=== PATIENT | female | born 1990 | race Caucasian/White ===

== ENCOUNTER 2017-11-03 17:06 | Emergency (ER) | payer MEDICAID ==
[~2017-11-03] VITALS: Ht 170.2 cm; Wt 90.7 kg
--- NOTE | 2017-11-03 17:12 | NUR ---
PATIENT AMBULATED TO ER BED 8
[2017-11-03 17:15] VITALS: BP 144/96
--- NOTE | 2017-11-03 17:29 | NUR ---
DR RICHARDSON AT BEDSIDE FOR PT EVALUATION
[2017-11-03] MEDS ORDERED: PANTOPRAZOLE 40 MG TABEC PO ONE (17:30)
[2017-11-03] MEDS ORDERED: ALUMINUM HYD/MAG/SIMETHICONE 30 ML UDC PO ONE (17:30)
[2017-11-03] MEDS ORDERED: KETOROLAC 30 MG/ML VIAL IM ONE (17:30)
[2017-11-03] MEDS ORDERED: LIDOCAINE VISCOUS 2% 20 ML UDC PO ONE (17:30)
[2017-11-03] MEDS ORDERED: ONDANSETRON 4 MG/2 ML VIAL IM ONE (17:30)
--- NOTE | 2017-11-03 17:50 | NUR ---
PT C/O EPIGASTRIC PAIN X 3 DAYS 06/27 BURNING, +N/V DENIES DIARRHEA OR DYSURIA. NO OTHER COMPLAINTS. HX: NONE
[2017-11-03 18:38] VITALS: BP 128/78
--- NOTE | 2017-11-03 18:38 | NUR ---
Patient discharged with v/s stable. Written and verbal after care instructions given and explained. Patient alert, oriented and verbalized understanding of instructions. Ambulatory with steady gait. All questions addressed prior to discharge. ID band removed. Patient advised to follow up with PMD. Rx of OMEPRAZOLE AND MAALOX given. Patient educated on indication of medication including possible reaction and side effects. Opportunity to ask questions provided and answered.
== END 2017-11-03 18:38 | disposition home or self-care (01) ==
LOC: MED 17:06
DX: K29.70 Gastritis, unspecified, without bleeding (principal); Z98.890 Other specified postprocedural states
CPT/HCPCS: 81002; 81025; 96372; 99284; J1885; J2405

== ENCOUNTER 2021-08-09 19:11 | Emergency (ER) | payer MEDICAID, OTHER ==
[~2021-08-09] VITALS: Ht 160 cm; Wt 108.0 kg
[~2021-08-09 19:11] MED LIST: OSC500 PO; PREN-385 PO
[2021-08-09 19:16] VITALS: BP 163/88
--- NOTE | 2021-08-09 20:21 | NUR ---
Dr. Francis examining patient.
[2021-08-09] MEDS ORDERED: CEPH-588 PO (20:23)
[2021-08-09] MEDS ORDERED: IBUP-2213 PO (20:23)
[2021-08-09 20:31] VITALS: BP 142/72
--- NOTE | 2021-08-09 20:31 | NUR ---
Patient discharged with v/s stable. Written and verbal after care instructions given and explained for Cellulitis, Adult. Patient alert, oriented and verbalized understanding of instructions. Ambulatory with steady gait. All questions addressed prior to discharge. ID band removed. Patient advised to follow up with PMD. Rx of Keflex and Ibuprofen given. Patient educated on indication of medication including possible reaction and side effects. Opportunity to ask questions provided and answered.
== END 2021-08-09 20:31 | disposition home or self-care (01) ==
LOC: MED 19:11
DX: L02.412 Cutaneous abscess of left axilla (principal); L03.112 Cellulitis of left axilla; Z79.899 Other long term (current) drug therapy
CPT/HCPCS: 99283

== ENCOUNTER 2023-07-12 20:13 | Emergency (ER) | payer OTHER ==
[~2023-07-12] VITALS: Ht 157.5 cm; Wt 108.9 kg
[~2023-07-12 20:13] MED LIST changes: +CEPH-588 PO; +IBUP-2213 PO
[2023-07-12 20:15] VITALS: BP 137/79; PULSE 90; RESP 16; TEMP 97.8; O2SAT 99
[2023-07-12 22:25] LABS: BASOPHILS % (AUTO) 0.3 % (0.0-2.0); EOSINOPHILS # (AUTO) 0.1 K/uL (0-0.4); EOSINOPHILS % (AUTO) 0.5 % (0.0-4.0); HEMATOCRIT 38.7 % (36-48); HEMOGLOBIN 12.8 g/dL (12.0-16.0); LYMPHOCYTES # (AUTO) 3.5 K/uL (2.5-16.5); LYMPHOCYTES % (AUTO) 25.8 % (20.5-51.1); MEAN CORPUSCULAR HEMOGLOBIN 27 pg (27-31); MEAN CORPUSCULAR HGB CONC 33 g/dL (33-37); MEAN CORPUSCULAR VOLUME 80.7 fL (80-94); MONOCYTES # (AUTO) 0.6 K/uL (0.8-1.0); MONOCYTES % (AUTO) 4.1 % (1.7-9.3); NEUTROPHILS # (AUTO) 9.3 K/uL (1.8-7.7); NEUTROPHILS % (AUTO) 69.3 % (42.2-75.2); PLATELET COUNT (AUTO) 267 K/uL (140-450); RED CELL DISTRIBUTION WIDTH 14.9 % (11.6-13.7); WHITE BLOOD COUNT (AUTO) 13.4 K/uL (4.8-10.8)
[2023-07-12 22:45] LABS: ALBUMIN 3.8 g/dL (3.4-5.0); ANION GAP 12.2 (8-16); CALCIUM 8.9 mg/dL (8.5-10.1); CARBON DIOXIDE 27.4 mmol/L (21-32); CREATININE 0.6 mg/dL (0.6-1.3); POTASSIUM 3.6 mmol/L (3.5-5.1); TOTAL BILIRUBIN 0.3 mg/dL (0.0-1.0)
[2023-07-13 01:18] VITALS: O2SAT 98
[2023-07-13] MEDS ORDERED: ALUMINUM HYD/MAG/SIMETHICONE 30 ML UDC ONE (01:40)
[2023-07-13 01:41] LABS: APPEARANCE,URINE CLEAR (CLEAR); BILIRUBIN,URINE NEGATIVE (NEGATIVE); BLOOD, URINE NEGATIVE (NEGATIVE); COLOR,URINE YELLOW (YELLOW); LEUKOCYTE ESTERASE ,URINE NEGATIVE (NEGATIVE); NITRITE, URINE NEGATIVE (NEGATIVE); PROTEIN,URINE NEGATIVE (NEGATIVE); UGLUCOSE NEGATIVE (NEGATIVE); UROBILINOGEN,URINE 0.2 EU/dL (0.2 - 1)
[2023-07-13] MEDS ORDERED: DICYCLOMINE HCL LIQUID 10 MG/5 ML UDC ONE (01:41)
[2023-07-13] MEDS: DICYCLOMINE HCL LIQUID 20 MG, ALUMINUM HYD/MAG/SIMETHICONE 30 ML, LIDOCAINE VISCOUS 2% ... PO ONE (01:44)
[2023-07-13] MEDS: KETOROLAC 30 MG/ML VIAL IM ONE (01:46)
[2023-07-13] MEDS ORDERED: MAG-27 PO (03:22)
[2023-07-13 03:30] VITALS: BP 125/73; PULSE 70; RESP 21; TEMP 98.1; O2SAT 98
== END 2023-07-13 03:30 | disposition home or self-care (01) ==
LOC: MED 20:13
DX: R10.13 Epigastric pain (principal); Z98.890 Other specified postprocedural states; Z79.1 Long term (current) use of non-steroidal anti-inflammatories (NSAID); Z79.899 Other long term (current) drug therapy
CPT/HCPCS: 36415; 80053; 81003; 81025; 83690; 85025; 96372; 99285; J1885; 99283